=== PATIENT | male | born 1945 | race Caucasian/White ===

== ENCOUNTER → 2017-01-30 | Outpatient (REF) | payer MEDICARE | LOC: M SFHCPLAZ 09:53 | PROVIDERS: ATTEND Urology | DX: E03.9 Hypothyroidism, unspecified (principal); Z85.46 Personal history of malignant neoplasm of prostate ==

== ENCOUNTER → 2017-06-02 | Outpatient (CLI) | payer MEDICARE | LOC: M LAB 09:51 | PROVIDERS: ATTEND Internal Medicine Pulmonary Disease | DX: E03.9 Hypothyroidism, unspecified (principal) ==

== ENCOUNTER → 2017-07-17 | Outpatient (CLI) | payer MEDICARE | LOC: M LAB 10:07 | PROVIDERS: ATTEND Urology | DX: Z85.46 Personal history of malignant neoplasm of prostate (principal) ==

== ENCOUNTER → 2017-07-25 | Outpatient (REF) | payer MEDICARE | LOC: M SMT 17:16 | PROVIDERS: ATTEND Urology | DX: R39.9 Unspecified symptoms and signs involving the genitourinary system (principal) | CPT/HCPCS: 51798; 81001; 87086; G0463 ==

== ENCOUNTER → 2018-07-31 | Outpatient (REF) | payer MEDICARE ==
[2018-07-31 12:45] LABS: APPEARANCE, URINE CLEAR (CLEAR); BACTERIA, URINE AUTO NEGATIVE (NEGATIVE); BILIRUBIN, URINE AUTO NEGATIVE (NEGATIVE); BLOOD, URINE BLOOD NEGATIVE (NEGATIVE); COLOR, URINE YELLOW (YELLOW); GLUCOSE, URINE (UA) AUTO NEGATIVE (NEGATIVE); KETONE, URINE AUTO NEGATIVE (NEGATIVE); LEUKOCYTE ESTERASE, URINE AUTO NEGATIVE (NEGATIVE); MUCUS, URINE SMALL (NEGATIVE); NITRITE, URINE AUTO NEGATIVE (NEGATIVE); PROTEIN, URINE AUTO NEGATIVE (NEGATIVE); RBC, URINE AUTO 0 /HPF (0-3); SQUAMOUS EPITHELIAL CELL UR AU 0 /HPF (0-6); UROBILINOGEN, URINE AUTO 0.2 mg/dL (0.0-2.0); WBC, URINE AUTO 1 /HPF (0-3)
[2018-07-31 14:22] LABS: PROSTATIC SPECIFIC AG MONITOR < 0.01 NG/ML (< 4.0)
[2018-07-31 14:23] LABS: ALBUMIN 3.7 GM/DL (3.2-5.2); ALBUMIN/GLOBULIN RATIO 1.19 (1.00-1.93); ALKALINE PHOSPHATASE 70 U/L (45-117); ALT/SGPT 29 U/L (12-78); ANION GAP 9 MEQ/L (8-16); AST/SGOT 14 U/L (7-37); BILIRUBIN,TOTAL 0.7 MG/DL (0.2-1.0); BLOOD UREA NITROGEN 24 MG/DL (7-18); CALCIUM LEVEL 9.1 MG/DL (8.8-10.2); CARBON DIOXIDE LEVEL 25 MEQ/L (21-32); CHLORIDE LEVEL 108 MEQ/L (98-107); CREATININE FOR GFR 1.76 MG/DL (0.70-1.30); GLOMERULAR FILTRATION RATE 40.7 (>42); GLUCOSE, FASTING 88 MG/DL (70-100); POTASSIUM SERUM 4.2 MEQ/L (3.5-5.1); SODIUM LEVEL 142 MEQ/L (136-145); TOTAL PROTEIN 6.8 GM/DL (6.4-8.2)
== END ==
LOC: M SFHCPLAZ 09:43
DX: E03.9 Hypothyroidism, unspecified (principal); N18.3 Chronic kidney disease, stage 3 (moderate); Z12.5 Encounter for screening for malignant neoplasm of prostate
CPT/HCPCS: 84443

== ENCOUNTER → 2019-02-24 | Outpatient (CLI) | payer MEDICARE ==
[2019-02-24 10:51] LABS: CALCIUM LEVEL 8.9 MG/DL (8.8-10.2); CHOLESTEROL RISK RATIO 2.653 (<5); CREATININE FOR GFR 1.77 MG/DL (0.70-1.30); GLOMERULAR FILTRATION RATE 40.5 (>42); POTASSIUM SERUM 3.8 MEQ/L (3.5-5.1); THYROID STIMULATING HORMONE 2.69 uIU/ML (0.358-3.740)
== END ==
LOC: M LAB 09:35
PROVIDERS: ATTEND Obstetrics & Gynecology
DX: E03.9 Hypothyroidism, unspecified (principal)

== ENCOUNTER → 2019-02-27 | Outpatient (CLI) | payer MEDICARE ==
--- NOTE | 2019-02-27 13:39 | REP ---
ABDOMINAL AORTIC ULTRASOUND: HISTORY: Screening for abdominal aortic aneurysm. FINDINGS: Scanning through the retroperitoneum demonstrates a normal caliber aorta without yohana aneurysm. Atherosclerotic plaquing is seen. We were not able to identify the aorta at the level of the diaphragmatic hiatus due to bowel gas. At the main renal artery level, aortic dimensions are 1.9 x 1.5 cm, AP x transverse respectively. At mid aorta, there is mild ectasia with dimensions of 2.6 x 2.3 cm. The distal aorta measures 1.9 x 1.9 cm. The right and left common iliac arteries are normal measuring 0.9 and 0.8 cm in AP dimension respectively. IMPRESSION: Atherosclerotic changes. No aneurysm seen. Electronically Signed by Leonard Rosenthal MD 02/27/2019 06:49 P
== END ==
LOC: M RAD 08:00
PROVIDERS: ATTEND Obstetrics & Gynecology
DX: Z13.6 Encounter for screening for cardiovascular disorders (principal)

== ENCOUNTER → 2020-02-06 | Outpatient (CLI) | payer MEDICARE ==
[2020-02-06 11:23] LABS: BLOOD UREA NITROGEN 24 MG/DL (7-18); CARBON DIOXIDE LEVEL 27 MEQ/L (21-32); CHLORIDE LEVEL 109 MEQ/L (98-107); CHOLESTEROL LEVEL 139 MG/DL (<200); CHOLESTEROL RISK RATIO 2.957 (<5); CREATININE FOR GFR 1.79 MG/DL (0.70-1.30); GLOMERULAR FILTRATION RATE 39.8 (>42); GLUCOSE, FASTING 115 MG/DL (70-100); HDL CHOLESTEROL 47 MG/DL (>40); LDL CHOLESTEROL 65 MG/DL (<100); NON-HDL-C 92 MG/DL; POTASSIUM SERUM 4.2 MEQ/L (3.5-5.1); PROSTATIC SPECIFIC AG MONITOR < 0.01 NG/ML (< 4.00); SODIUM LEVEL 141 MEQ/L (136-145); TRIGLYCERIDES LEVEL 133 MG/DL (<150)
== END ==
LOC: M LAB 10:04
PROVIDERS: ATTEND Obstetrics & Gynecology
DX: I12.9 Hypertensive chronic kidney disease with stage 1 through stage 4 chronic kidney disease, or unspecified chronic kidney disease (principal); E03.9 Hypothyroidism, unspecified; E78.49 Other hyperlipidemia; N18.3 Chronic kidney disease, stage 3 (moderate); Z85.46 Personal history of malignant neoplasm of prostate

== ENCOUNTER → 2020-02-06 | Outpatient (CLI) | payer MEDICARE | LOC: M LAB 10:00 | PROVIDERS: ATTEND Nurse Practitioner Women's Health | DX: Z85.46 Personal history of malignant neoplasm of prostate (principal) ==

== ENCOUNTER 2020-04-07 18:24 | Emergency (ER) | payer MEDICARE ==
[~2020-04-07] VITALS: Ht 172.7 cm; Wt 80.4 kg
[2020-04-07] MEDS ORDERED: AMLO10TA5 PO (18:49)
[2020-04-07] MEDS ORDERED: LOSA50TA88 PO (18:49)
[2020-04-07] MEDS ORDERED: TAMS1CAP17 PO (18:49)
[2020-04-07] MEDS ORDERED: LEVO75TA4 PO (18:49)
[2020-04-07] MEDS ORDERED: ATOR80TA59 PO (18:49)
[2020-04-07 19:04] LABS: BASO % 0.3 % (0.0-1.0); EOS # 0.4 10^3/uL (0.0-0.5); EOS % 3.5 % (0.0-3.0); HEMATOCRIT 47.2 % (42.0-52.0); HEMOGLOBIN 15.4 g/dl (13.5-17.5); LYMPH # 1.6 10^3/uL (1.5-5.0); MEAN CORPUSCULAR HEMOGLOBIN 27.6 pg (27.0-33.0); MEAN CORPUSCULAR HGB CONC 32.6 g/dl (32.0-36.5); MEAN CORPUSCULAR VOLUME 84.7 fl (80.0-96.0); MONO # 0.8 10^3/uL (0.0-0.8); MONO % 7.2 % (0.0-5.0); NEUTROPHILS # 7.8 10^3/uL (1.5-8.5); NEUTROPHILS % 73.6 % (36.0-66.0); PLATELET COUNT, AUTOMATED 182 10^3/uL (150-450); RED BLOOD COUNT 5.57 10^6/uL (4.30-6.10); WHITE BLOOD COUNT 10.6 10^3/uL (4.0-10.0)
[2020-04-07] MEDS ORDERED: NS 500 ML IV ONE (19:15)
--- NOTE | 2020-04-07 19:32 | REPVR ---
PROCEDURE INFORMATION: Exam: CT Head Without Contrast Exam date and time: 04/07/2020 7:02 PM Age: 74 years old Clinical indication: Altered mental status/memory loss; Additional info: AMS TECHNIQUE: Imaging protocol: Computed tomography of the head without contrast. Radiation optimization: All CT scans at this facility use at least one of these dose optimization techniques: automated exposure control; mA and/or kV adjustment per patient size (includes targeted exams where dose is matched to clinical indication); or iterative reconstruction. COMPARISON: No relevant prior studies available. FINDINGS: Brain: Foci of hyperdensity are identified within the right basal ganglia, the largest measuring 0.7 x 0.4 cm. This is concerning for hemorrhage or calcification. The white-nolasco differentiation is otherwise preserved demonstrating no acute territorial type infarct. There are scattered foci of white matter hypodensity, likely representing small vessel ischemic disease in a patient this age. The acuity of the white matter disease is indeterminate. There is no midline shift. Ventricles: There is mild prominence of the ventricles and sulci, compatible with atrophy. Bones/joints: The calvarium demonstrates no evidence for a depressed fracture. Sinuses: Visualized sinuses are unremarkable. No fluid levels. Mastoid air cells: No mastoid effusion. Soft tissues: Unremarkable. Vasculature: Hyperdensity is identified in the region of the straight sinus, left transverse venous sinus, and internal cerebral veins. Thrombosis is the diagnosis of exclusion. Intracranial atherosclerosis visualized. IMPRESSION: 1. Foci of hyperdensity are identified within the right basal ganglia, the largest measuring 0.7 x 0.4 cm. This is concerning for hemorrhage or calcification. A follow-up head CT in 12-24 hours is recommended. 2. Hyperdensity is identified in the region of the straight sinus, left transverse venous sinus, and internal cerebral veins. Thrombosis is the diagnosis of exclusion. Correlation with MRI with/without contrast and MRV recommended, as clinically indicated. 3. There are scattered foci of white matter hypodensity, likely representing small vessel ischemic disease in a patient this age. 4. Mild atrophy. Electronically signed by: Julio Santizo On 04/07/2020 19:31:51 PM
[2020-04-07 19:37] LABS: OSMOLALITY SERUM 298 MOSM/KG (280-301)
[2020-04-07] MEDS ORDERED: niCARdipine IV 40 MG in IV 1 EA IV SCH (19:45)
[2020-04-07 19:52] LABS: ACETAMINOPHEN LEVEL < 2.0 UG/ML (10.0-30.0); ALBUMIN 3.7 GM/DL (3.2-5.2); ALT/SGPT 28 U/L (12-78); BILIRUBIN,DIRECT 0.2 MG/DL (0.0-0.2); BILIRUBIN,TOTAL 0.5 MG/DL (0.2-1.0); BLOOD UREA NITROGEN 20 MG/DL (7-18); CALCIUM LEVEL 8.8 MG/DL (8.8-10.2); CARBON DIOXIDE LEVEL 25 MEQ/L (21-32); CHLORIDE LEVEL 111 MEQ/L (98-107); CK-MB VALUE MASS < 1.0 NG/ML (<3.6); CPK CREATINE PHOSPHOKINASE 87 U/L (39-308); CREATININE FOR GFR 1.63 MG/DL (0.70-1.30); ETHYL ALCOHOL (ETHANOL) < 0.003 % (0.000-0.010); GLOMERULAR FILTRATION RATE 44.4 (>42); GLUCOSE, FASTING 97 MG/DL (70-100); MB/CK RELATIVE INDEX 1.15 (< OR =4); POTASSIUM SERUM 4.2 MEQ/L (3.5-5.1); SALICYLATE LEVEL < 1.7 MG/DL (5.0-30.0); SODIUM LEVEL 143 MEQ/L (136-145); TOTAL PROTEIN 7.1 GM/DL (6.4-8.2); TROPONIN I < 0.02 NG/ML (< 0.10)
[2020-04-07 20:44] LABS: AMPHETAMINES LEVEL URINE NEGATIVE (NEGATIVE); BARBITURATES URINE NEGATIVE (NEGATIVE); BENZODIAZEPINES URINE NEGATIVE (NEGATIVE); CANNABINOIDS URINE NEGATIVE (NEGATIVE); COCAINE METABOLITE URINE NEGATIVE (NEGATIVE); METHADONE URINE NEGATIVE (NEGATIVE); OPIATES URINE NEGATIVE (NEGATIVE); PHENCYCLIDINE URINE NEGATIVE (NEGATIVE)
[2020-04-07 21:05] VITALS: BP 140/65
--- NOTE | 2020-04-07 21:18 | ECGEPIP ---
[facility] - ED Test Date: 2020-04-07 Pat Name: IONA LOO Department: Room: - Gender: Male [employer]: : [id number] Requested By: Blair Churchill Order Number: [id number] Reading MD: Tereza Peterson Measurements Intervals [place] Rate: 67 P: 23 DC: 152 QRS: 5 QRSD: 88 T: 32 QT: 371 QTc: 394 Interpretive Statements SINUS RHYTHM MODERATE ST DEPRESSION NO PRIOR Electronically Signed on 04-07-2020 21:18:12 EDT by Tereza Peterson
--- NOTE | 2020-04-08 08:09 | REP ---
Portable chest x-ray: Single view. History: Altered mental status. Preliminary report is provided at the time of the exam by Dr. Trejo. Comparison study: October 24, 2011. Findings: Monitoring electrodes are seen. Mild cardiac enlargement is observed. This is a new finding. The aorta somewhat tortuous. Pulmonary vasculature is cephalized. No pleural effusion or pulmonary edema seen. No focal infiltrate is noted. Impression: Mild cardiomegaly. Otherwise no acute disease. Electronically Signed by Leonard Rosenthal MD 04/08/2020 08:00 A
== END 2020-04-07 21:15 | disposition short-term general hospital (02) ==
LOC: M ED 18:24
DX: I62.9 Nontraumatic intracranial hemorrhage, unspecified (principal); I16.0 Hypertensive urgency; E03.9 Hypothyroidism, unspecified; E78.5 Hyperlipidemia, unspecified; N18.3 Chronic kidney disease, stage 3 (moderate); Z85.46 Personal history of malignant neoplasm of prostate; Z87.891 Personal history of nicotine dependence; Z79.899 Other long term (current) drug therapy
CPT/HCPCS: 36415; 70450; 71045; 80048; 80076; 80307; 82140; 82550; 82553; 83605; 83930; 84443; 84484; 85025; 87040; 93005; 93041; 94760; 96374; 99285; G0480; U0002

== ENCOUNTER → 2020-05-28 | Outpatient (REF) | payer MEDICARE ==
[~2020-05-28] MED LIST: AMLO1TAB25 PO; ATOR80TA59 PO; LEVO75TA4 PO; LOSA50TA88 PO; TAMS1CAP17 PO
[2020-05-28 11:43] LABS: INR 2.62; PROTHROMBIN TIME 27.9 SECONDS (11.8-14.0)
== END ==
LOC: M SHH 11:06
PROVIDERS: ATTEND Student in an Organized Health Care Education/Training Program
DX: Z51.81 Encounter for therapeutic drug level monitoring (principal); Z79.01 Long term (current) use of anticoagulants

== ENCOUNTER → 2020-05-31 | Outpatient (REF) | payer MEDICARE ==
[2020-05-31 15:00] LABS: INR 1.76; PROTHROMBIN TIME 20.3 SECONDS (11.8-14.0)
== END ==
LOC: M SHH 14:14
PROVIDERS: ATTEND Student in an Organized Health Care Education/Training Program
DX: Z79.01 Long term (current) use of anticoagulants (principal)

== ENCOUNTER → 2020-06-03 | Outpatient (REF) | payer MEDICARE ==
[2020-06-03 14:10] LABS: INR 1.74; PROTHROMBIN TIME 20.1 SECONDS (11.8-14.0)
== END ==
LOC: M SHH 13:34
PROVIDERS: ATTEND Student in an Organized Health Care Education/Training Program
DX: Z79.01 Long term (current) use of anticoagulants (principal)

== ENCOUNTER → 2020-06-07 | Outpatient (REF) | payer MEDICARE ==
[2020-06-07 12:43] LABS: INR 1.69; PROTHROMBIN TIME 19.6 SECONDS (11.8-14.0)
== END ==
LOC: M SHH 11:32
PROVIDERS: ATTEND Student in an Organized Health Care Education/Training Program
DX: Z79.01 Long term (current) use of anticoagulants (principal)

== ENCOUNTER → 2020-06-10 | Outpatient (REF) | payer MEDICARE ==
[2020-06-10 11:29] LABS: INR 1.71; PROTHROMBIN TIME 19.8 SECONDS (11.8-14.0)
== END ==
LOC: M SHH 11:04
PROVIDERS: ATTEND Student in an Organized Health Care Education/Training Program
DX: Z79.01 Long term (current) use of anticoagulants (principal)

== ENCOUNTER → 2020-06-14 | Outpatient (REF) | payer MEDICARE ==
[2020-07-18 22:49] LABS: HEMATOCRIT 33.3 % (42.0-52.0); HEMOGLOBIN 10.3 g/dl (13.5-17.5); MEAN CORPUSCULAR VOLUME 82.2 fl (80.0-96.0); RED BLOOD COUNT 4.05 10^6/uL (4.30-6.10); WHITE BLOOD COUNT 8.1 10^3/uL (4.0-10.0)
[2020-07-18 22:50] LABS: MEAN CORPUSCULAR HEMOGLOBIN 25.4 pg (27.0-33.0); MEAN CORPUSCULAR HGB CONC 30.9 g/dl (32.0-36.5); PLATELET COUNT, AUTOMATED 335 10^3/uL (150-450)
[2020-07-18 22:51] LABS: INR 1.62; PROTHROMBIN TIME 19.6 SECONDS (11.8-14.0)
[2020-08-20 14:59] LABS: GLUCOSE, FASTING SEE SEPARATE REPORT MG/DL
== END ==
LOC: M SHH 07:46
PROVIDERS: ATTEND Student in an Organized Health Care Education/Training Program
DX: Z79.01 Long term (current) use of anticoagulants (principal)

== ENCOUNTER → 2020-06-21 | Outpatient (REF) | payer MEDICARE ==
[2020-07-18 22:48] LABS: INR 2.58; PROTHROMBIN TIME 28.3 SECONDS (11.8-14.0)
== END ==
LOC: M LAB REF 12:39
PROVIDERS: ATTEND Student in an Organized Health Care Education/Training Program
DX: Z79.01 Long term (current) use of anticoagulants (principal)

== ENCOUNTER → 2020-06-24 | Outpatient (REF) | payer MEDICARE ==
[2020-07-22 12:43] LABS: INR 3.1; PROTHROMBIN TIME 32.6 SECONDS (11.8-14.0)
== END ==
LOC: M SHH 17:11
PROVIDERS: ATTEND Student in an Organized Health Care Education/Training Program
DX: Z51.81 Encounter for therapeutic drug level monitoring (principal); Z79.01 Long term (current) use of anticoagulants

== ENCOUNTER → 2020-06-28 | Outpatient (REF) | payer MEDICARE ==
[2020-07-28 13:23] LABS: INR 3.48; PROTHROMBIN TIME 35.8 SECONDS (11.8-14.0)
== END ==
LOC: M SFHCPLAZ 12:30
PROVIDERS: ATTEND Student in an Organized Health Care Education/Training Program
DX: Z79.01 Long term (current) use of anticoagulants (principal)

== ENCOUNTER → 2020-07-01 | Outpatient (REF) | payer MEDICARE ==
[2020-08-04 10:52] LABS: INR 3.36; PROTHROMBIN TIME 34.8 SECONDS (11.8-14.0)
== END ==
LOC: M SFHCPLAZ 11:48
PROVIDERS: ATTEND Student in an Organized Health Care Education/Training Program
DX: Z79.01 Long term (current) use of anticoagulants (principal)

== ENCOUNTER → 2020-07-05 | Outpatient (REF) | payer MEDICARE ==
[2020-08-21 16:33] LABS: INR 2.85; PROTHROMBIN TIME 30.6 SECONDS (12.5-14.3)
== END ==
LOC: M SFHCPLAZ 11:48
PROVIDERS: ATTEND Student in an Organized Health Care Education/Training Program
DX: Z79.01 Long term (current) use of anticoagulants (principal)

== ENCOUNTER → 2020-07-08 | Outpatient (CLI) | payer MEDICARE ==
[2020-07-08 12:20] LABS: INR 2.83; PROTHROMBIN TIME 30.4 SECONDS (11.8-14.0)
== END ==
LOC: M PLALAB 10:44
PROVIDERS: ATTEND Student in an Organized Health Care Education/Training Program
DX: Z79.01 Long term (current) use of anticoagulants (principal)

== ENCOUNTER → 2020-07-15 | Outpatient (CLI) | payer MEDICARE ==
[2020-07-15 13:41] LABS: INR 2.15; PROTHROMBIN TIME 24.5 SECONDS (11.8-14.0)
== END ==
LOC: M PLALAB 10:03
PROVIDERS: ATTEND Student in an Organized Health Care Education/Training Program
DX: Z51.81 Encounter for therapeutic drug level monitoring (principal); Z79.01 Long term (current) use of anticoagulants

== ENCOUNTER → 2020-07-19 | Outpatient (RCR) | payer MEDICARE | END | disposition home or self-care (01) | LOC: M PT 07-07 10:14 → M ST 07-12 10:55 → M PT 07-13 13:34 → M ST 07-15 13:30 → M PT 09:55 → M ST 10:56 | PROVIDERS: ATTEND Student in an Organized Health Care Education/Training Program | DX: G93.9 Disorder of brain, unspecified (principal) ==

== ENCOUNTER → 2020-07-19 | Outpatient (CLI) | payer MEDICARE ==
[2020-07-19 16:16] LABS: INR 2.89; PROTHROMBIN TIME 30.9 SECONDS (11.8-14.0)
== END ==
LOC: M PLALAB 12:49
PROVIDERS: ATTEND Student in an Organized Health Care Education/Training Program
DX: Z79.01 Long term (current) use of anticoagulants (principal)

== ENCOUNTER → 2020-07-22 | Outpatient (CLI) | payer MEDICARE ==
[2020-07-22 13:08] LABS: INR 2.92; PROTHROMBIN TIME 31.1 SECONDS (11.8-14.0)
== END ==
LOC: M PLALAB 09:48
PROVIDERS: ATTEND Student in an Organized Health Care Education/Training Program
DX: Z51.81 Encounter for therapeutic drug level monitoring (principal)

== ENCOUNTER → 2020-07-27 | Outpatient (REF) | payer MEDICARE ==
[2020-07-27 14:28] LABS: INR 2.82; PROTHROMBIN TIME 30.3 SECONDS (11.8-14.0)
== END ==
LOC: M PLALAB 13:08
PROVIDERS: ATTEND Student in an Organized Health Care Education/Training Program
DX: Z79.01 Long term (current) use of anticoagulants (principal)

== ENCOUNTER 2020-08-05 11:30 | Outpatient (RCR) | payer MEDICARE | END 2020-08-18 | disposition home or self-care (01) | LOC: M ST 11:30 | PROVIDERS: ATTEND Student in an Organized Health Care Education/Training Program | DX: I69.815 Cognitive social or emotional deficit following other cerebrovascular disease (principal) ==

== ENCOUNTER → 2020-08-05 | Outpatient (CLI) | payer MEDICARE ==
[2020-08-05 14:18] LABS: INR 3.02
== END ==
LOC: M PLALAB 10:08
PROVIDERS: ATTEND Student in an Organized Health Care Education/Training Program
DX: Z79.01 Long term (current) use of anticoagulants (principal)

== ENCOUNTER → 2020-08-12 | Outpatient (CLI) | payer MEDICARE ==
[2020-08-12 13:35] LABS: INR 2.81; PROTHROMBIN TIME 30.2 SECONDS (12.5-14.3)
== END ==
LOC: M PLALAB 10:07
PROVIDERS: ATTEND Student in an Organized Health Care Education/Training Program
DX: Z51.81 Encounter for therapeutic drug level monitoring (principal); Z79.01 Long term (current) use of anticoagulants

== ENCOUNTER → 2020-08-19 | Outpatient (CLI) | payer MEDICARE ==
[2020-08-19 14:15] LABS: INR 2.65; PROTHROMBIN TIME 28.9 SECONDS (12.5-14.3)
== END ==
LOC: M PLALAB 09:22
PROVIDERS: ATTEND Student in an Organized Health Care Education/Training Program
DX: Z51.81 Encounter for therapeutic drug level monitoring (principal)

== ENCOUNTER → 2020-08-26 | Outpatient (CLI) | payer MEDICARE ==
[2020-08-26 15:53] LABS: INR 2.6; PROTHROMBIN TIME 28.4 SECONDS (12.5-14.3)
== END ==
LOC: M PLALAB 14:00
PROVIDERS: ATTEND Student in an Organized Health Care Education/Training Program
DX: Z79.01 Long term (current) use of anticoagulants (principal)

== ENCOUNTER 2020-09-01 10:43 | Outpatient (RCR) | payer MEDICARE | END 2020-09-18 | LOC: M PT 10:43 | PROVIDERS: ATTEND Student in an Organized Health Care Education/Training Program | DX: I69.815 Cognitive social or emotional deficit following other cerebrovascular disease (principal) ==

== ENCOUNTER → 2020-09-02 | Outpatient (CLI) | payer MEDICARE ==
[2020-09-02 14:12] LABS: INR 2.92; PROTHROMBIN TIME 31.2 SECONDS (12.5-14.3)
== END ==
LOC: M PLALAB 10:10
PROVIDERS: ATTEND Student in an Organized Health Care Education/Training Program
DX: Z79.01 Long term (current) use of anticoagulants (principal)

== ENCOUNTER → 2020-09-09 | Outpatient (CLI) | payer MEDICARE ==
[2020-09-09 14:18] LABS: INR 3.01; PROTHROMBIN TIME 31.9 SECONDS (12.5-14.3)
== END ==
LOC: M PLALAB 11:35
PROVIDERS: ATTEND Student in an Organized Health Care Education/Training Program
DX: Z79.01 Long term (current) use of anticoagulants (principal)

== ENCOUNTER → 2020-09-23 | Outpatient (CLI) | payer MEDICARE ==
[2020-09-23 14:26] LABS: INR 3.26
== END ==
LOC: M PLALAB 10:32
PROVIDERS: ATTEND Student in an Organized Health Care Education/Training Program
DX: Z79.01 Long term (current) use of anticoagulants (principal)

== ENCOUNTER → 2020-10-21 | Outpatient (CLI) | payer MEDICARE ==
[2020-10-21 15:15] LABS: INR 3.71; PROTHROMBIN TIME 37.6 SECONDS (12.5-14.3)
== END ==
LOC: M PLALAB 11:49
PROVIDERS: ATTEND Student in an Organized Health Care Education/Training Program
DX: Z51.81 Encounter for therapeutic drug level monitoring (principal); Z79.01 Long term (current) use of anticoagulants

== ENCOUNTER → 2020-10-25 | Outpatient (CLI) | payer MEDICARE ==
[2020-10-25 16:08] LABS: INR 2.74; PROTHROMBIN TIME 29.6 SECONDS (12.5-14.3)
[2020-10-25 16:12] LABS: GLOMERULAR FILTRATION RATE 34.9 (>42)
== END ==
LOC: M PLALAB 11:36
PROVIDERS: ATTEND Psychiatry & Neurology Neurology
DX: Z51.81 Encounter for therapeutic drug level monitoring (principal); I63.6 Cerebral infarction due to cerebral venous thrombosis, nonpyogenic; I26.99 Other pulmonary embolism without acute cor pulmonale; I82.421 Acute embolism and thrombosis of right iliac vein

== ENCOUNTER → 2020-11-18 | Outpatient (CLI) | payer MEDICARE ==
[2020-11-18 13:24] LABS: INR 3.8; PROTHROMBIN TIME 38.3 SECONDS (12.5-14.3)
== END ==
LOC: M PLALAB 10:50
PROVIDERS: ATTEND Student in an Organized Health Care Education/Training Program
DX: Z51.81 Encounter for therapeutic drug level monitoring (principal)

== ENCOUNTER → 2020-11-25 | Outpatient (CLI) | payer MEDICARE ==
[2020-11-25 14:34] LABS: INR 3.14
== END ==
LOC: M PLALAB 11:09
PROVIDERS: ATTEND Student in an Organized Health Care Education/Training Program
DX: Z51.81 Encounter for therapeutic drug level monitoring (principal); Z79.899 Other long term (current) drug therapy

== ENCOUNTER → 2020-12-09 | Outpatient (REF) | payer MEDICARE ==
[2020-12-09 14:53] LABS: INR 3.18; PROTHROMBIN TIME 33.3 SECONDS (12.5-14.3)
== END ==
LOC: M PLALAB 10:44
PROVIDERS: ATTEND Student in an Organized Health Care Education/Training Program
DX: Z51.81 Encounter for therapeutic drug level monitoring (principal)

== ENCOUNTER → 2021-01-13 | Outpatient (REF) | payer MEDICARE ==
[2021-01-13 13:46] LABS: INR 4.01
== END ==
LOC: M PLALAB 10:38
PROVIDERS: ATTEND Student in an Organized Health Care Education/Training Program
DX: Z51.81 Encounter for therapeutic drug level monitoring (principal)

== ENCOUNTER → 2021-01-20 | Outpatient (REF) | payer MEDICARE ==
[2021-01-20 13:51] LABS: INR 3.32; PROTHROMBIN TIME 34.5 SECONDS (12.5-14.3)
== END ==
LOC: M PLALAB 10:19
PROVIDERS: ATTEND Student in an Organized Health Care Education/Training Program
DX: Z51.81 Encounter for therapeutic drug level monitoring (principal)

== ENCOUNTER → 2021-01-27 | Outpatient (REF) | payer MEDICARE ==
[2021-01-27 13:08] LABS: INR 3.47; PROTHROMBIN TIME 35.7 SECONDS (12.5-14.3)
== END ==
LOC: M PLALAB 10:49
PROVIDERS: ATTEND Student in an Organized Health Care Education/Training Program
DX: Z51.81 Encounter for therapeutic drug level monitoring (principal)

== ENCOUNTER → 2021-02-03 | Outpatient (REF) | payer MEDICARE ==
[2021-02-03 13:54] LABS: INR 3.64; PROTHROMBIN TIME 37.1 SECONDS (12.5-14.3)
== END ==
LOC: M PLALAB 11:10
PROVIDERS: ATTEND Student in an Organized Health Care Education/Training Program
DX: Z51.81 Encounter for therapeutic drug level monitoring (principal); Z79.01 Long term (current) use of anticoagulants

== ENCOUNTER → 2021-02-10 | Outpatient (REF) | payer MEDICARE ==
[2021-02-10 12:16] LABS: INR 2.95; PROTHROMBIN TIME 31.4 SECONDS (12.5-14.3)
== END ==
LOC: M PLALAB 11:04
PROVIDERS: ATTEND Student in an Organized Health Care Education/Training Program
DX: Z51.81 Encounter for therapeutic drug level monitoring (principal)

== ENCOUNTER → 2021-02-17 | Outpatient (REF) | payer MEDICARE ==
[2021-02-17 14:19] LABS: INR 3.65; PROTHROMBIN TIME 37.1 SECONDS (12.5-14.3)
== END ==
LOC: M PLALAB 11:30
PROVIDERS: ATTEND Student in an Organized Health Care Education/Training Program
DX: Z51.81 Encounter for therapeutic drug level monitoring (principal); Z79.01 Long term (current) use of anticoagulants

== ENCOUNTER → 2021-02-24 | Outpatient (REF) | payer MEDICARE ==
[2021-02-24 14:07] LABS: INR 2.95; PROTHROMBIN TIME 31.4 SECONDS (12.5-14.3)
== END ==
LOC: M PLALAB 11:11
PROVIDERS: ATTEND Student in an Organized Health Care Education/Training Program
DX: Z51.81 Encounter for therapeutic drug level monitoring (principal)

== ENCOUNTER → 2021-03-03 | Outpatient (REF) | payer MEDICARE ==
[2021-03-03 14:08] LABS: INR 3.53; PROTHROMBIN TIME 36.2 SECONDS (12.5-14.3)
== END ==
LOC: M PLALAB 11:11
PROVIDERS: ATTEND Student in an Organized Health Care Education/Training Program
DX: Z51.81 Encounter for therapeutic drug level monitoring (principal); Z79.01 Long term (current) use of anticoagulants

== ENCOUNTER → 2021-03-10 | Outpatient (REF) | payer MEDICARE ==
[2021-03-10 14:00] LABS: INR 3.13; PROTHROMBIN TIME 32.9 SECONDS (12.5-14.3)
== END ==
LOC: M SFHCPLAZ 13:28
PROVIDERS: ATTEND Student in an Organized Health Care Education/Training Program
DX: Z79.01 Long term (current) use of anticoagulants (principal)

== ENCOUNTER → 2021-03-24 | Outpatient (CLI) | payer MEDICARE ==
[2021-03-24 13:02] LABS: INR 3.2; PROTHROMBIN TIME 33.5 SECONDS (12.5-14.3)
== END ==
LOC: M PLALAB 10:50
PROVIDERS: ATTEND Student in an Organized Health Care Education/Training Program
DX: Z51.81 Encounter for therapeutic drug level monitoring (principal)

== ENCOUNTER → 2021-04-01 | Outpatient (REF) | payer MEDICARE ==
[2021-04-01 11:26] LABS: INR 4.14
== END ==
LOC: M PLALAB 09:49
PROVIDERS: ATTEND Student in an Organized Health Care Education/Training Program
DX: Z79.01 Long term (current) use of anticoagulants (principal)

== ENCOUNTER → 2021-04-04 | Outpatient (REF) | payer MEDICARE ==
[2021-04-04 13:40] LABS: INR 3.73; PROTHROMBIN TIME 37.8 SECONDS (12.5-14.3)
== END ==
LOC: M PLALAB 09:40
PROVIDERS: ATTEND Student in an Organized Health Care Education/Training Program
DX: Z51.81 Encounter for therapeutic drug level monitoring (principal); Z79.01 Long term (current) use of anticoagulants

== ENCOUNTER → 2021-04-07 | Outpatient (REF) | payer MEDICARE ==
[2021-04-07 15:55] LABS: INR 2.83; PROTHROMBIN TIME 30.4 SECONDS (12.5-14.3)
== END ==
LOC: M SFHCPLAZ 14:48
PROVIDERS: ATTEND Student in an Organized Health Care Education/Training Program
DX: R79.1 Abnormal coagulation profile (principal)

== ENCOUNTER → 2021-04-14 | Outpatient (CLI) | payer MEDICARE ==
[2021-04-14 13:51] LABS: INR 2.82; PROTHROMBIN TIME 30.3 SECONDS (12.5-14.3)
== END ==
LOC: M PLALAB 09:36
PROVIDERS: ATTEND Student in an Organized Health Care Education/Training Program
DX: R79.1 Abnormal coagulation profile (principal)

== ENCOUNTER → 2021-04-21 | Outpatient (REF) | payer MEDICARE ==
[2021-04-21 13:30] LABS: INR 3.56; PROTHROMBIN TIME 36.4 SECONDS (12.5-14.3)
== END ==
LOC: M PLALAB 10:51
PROVIDERS: ATTEND Student in an Organized Health Care Education/Training Program
DX: Z51.81 Encounter for therapeutic drug level monitoring (principal)

== ENCOUNTER → 2021-04-28 | Outpatient (REF) | payer MEDICARE ==
[2021-04-28 14:27] LABS: INR 2.69; PROTHROMBIN TIME 29.2 SECONDS (12.5-14.3)
== END ==
LOC: M PLALAB 12:58
PROVIDERS: ATTEND Student in an Organized Health Care Education/Training Program
DX: Z51.81 Encounter for therapeutic drug level monitoring (principal); Z79.01 Long term (current) use of anticoagulants

== ENCOUNTER → 2021-05-05 | Outpatient (REF) | payer MEDICARE ==
[2021-05-05 14:01] LABS: INR 3.4; PROTHROMBIN TIME 35.1 SECONDS (12.5-14.3)
== END ==
LOC: M PLALAB 12:52
PROVIDERS: ATTEND Student in an Organized Health Care Education/Training Program
DX: Z51.81 Encounter for therapeutic drug level monitoring (principal); Z79.899 Other long term (current) drug therapy

== ENCOUNTER → 2021-05-12 | Outpatient (REF) | payer MEDICARE ==
[2021-05-12 14:01] LABS: INR 2.22; PROTHROMBIN TIME 25.1 SECONDS (12.5-14.3)
== END ==
LOC: M PLALAB 12:49
PROVIDERS: ATTEND Student in an Organized Health Care Education/Training Program
DX: Z51.81 Encounter for therapeutic drug level monitoring (principal); Z79.899 Other long term (current) drug therapy

== ENCOUNTER → 2021-05-19 | Outpatient (CLI) | payer MEDICARE ==
[2021-05-19 13:47] LABS: INR 3.19; PROTHROMBIN TIME 33.4 SECONDS (12.5-14.3)
== END ==
LOC: M PLALAB 11:07
PROVIDERS: ATTEND Student in an Organized Health Care Education/Training Program
DX: Z51.81 Encounter for therapeutic drug level monitoring (principal)

== ENCOUNTER → 2021-05-26 | Outpatient (CLI) | payer MEDICARE ==
[2021-05-26 13:47] LABS: INR 3.3; PROTHROMBIN TIME 34.3 SECONDS (12.5-14.3)
== END ==
LOC: M PLALAB 09:36
PROVIDERS: ATTEND Student in an Organized Health Care Education/Training Program
DX: Z51.81 Encounter for therapeutic drug level monitoring (principal); Z79.899 Other long term (current) drug therapy

== ENCOUNTER → 2021-06-02 | Outpatient (CLI) | payer MEDICARE ==
[2021-06-02 14:05] LABS: INR 3.51
== END ==
LOC: M PLALAB 10:28
PROVIDERS: ATTEND Student in an Organized Health Care Education/Training Program
DX: Z51.81 Encounter for therapeutic drug level monitoring (principal)

== ENCOUNTER → 2021-06-09 | Outpatient (CLI) | payer MEDICARE ==
[2021-06-09 13:40] LABS: INR 2.98; PROTHROMBIN TIME 31.7 SECONDS (12.5-14.3)
== END ==
LOC: M PLALAB 10:05
PROVIDERS: ATTEND Student in an Organized Health Care Education/Training Program
DX: Z51.81 Encounter for therapeutic drug level monitoring (principal)

== ENCOUNTER → 2021-06-16 | Outpatient (CLI) | payer MEDICARE ==
[2021-06-16 13:27] LABS: INR 3.29; PROTHROMBIN TIME 34.2 SECONDS (12.5-14.3)
== END ==
LOC: M PLALAB 10:37
PROVIDERS: ATTEND Student in an Organized Health Care Education/Training Program
DX: Z51.81 Encounter for therapeutic drug level monitoring (principal); Z79.01 Long term (current) use of anticoagulants

== ENCOUNTER → 2021-06-23 | Outpatient (CLI) | payer MEDICARE ==
[2021-06-23 13:20] LABS: INR 3.48; PROTHROMBIN TIME 35.2 SECONDS (12.7-14.5)
== END ==
LOC: M PLALAB 10:20
PROVIDERS: ATTEND Student in an Organized Health Care Education/Training Program
DX: Z51.81 Encounter for therapeutic drug level monitoring (principal)

== ENCOUNTER → 2021-06-30 | Outpatient (CLI) | payer MEDICARE ==
[2021-06-30 13:47] LABS: INR 3.65; PROTHROMBIN TIME 36.5 SECONDS (12.7-14.5)
== END ==
LOC: M PLALAB 10:43
PROVIDERS: ATTEND Student in an Organized Health Care Education/Training Program
DX: Z51.81 Encounter for therapeutic drug level monitoring (principal)

== ENCOUNTER → 2021-07-07 | Outpatient (CLI) | payer MEDICARE ==
[2021-07-07 13:46] LABS: INR 2.88; PROTHROMBIN TIME 30.5 SECONDS (12.7-14.5)
== END ==
LOC: M PLALAB 10:52
PROVIDERS: ATTEND Student in an Organized Health Care Education/Training Program
DX: Z51.81 Encounter for therapeutic drug level monitoring (principal)

== ENCOUNTER → 2021-07-14 | Outpatient (CLI) | payer MEDICARE ==
[2021-07-14 13:25] LABS: INR 2.87; PROTHROMBIN TIME 30.4 SECONDS (12.7-14.5)
== END ==
LOC: M PLALAB 10:08
PROVIDERS: ATTEND Student in an Organized Health Care Education/Training Program
DX: Z51.81 Encounter for therapeutic drug level monitoring (principal)

== ENCOUNTER → 2021-07-21 | Outpatient (CLI) | payer MEDICARE ==
[2021-07-21 13:47] LABS: INR 3.03; PROTHROMBIN TIME 31.7 SECONDS (12.7-14.5)
== END ==
LOC: M PLALAB 10:03
PROVIDERS: ATTEND Student in an Organized Health Care Education/Training Program
DX: Z51.81 Encounter for therapeutic drug level monitoring (principal); Z79.899 Other long term (current) drug therapy

== ENCOUNTER → 2021-07-28 | Outpatient (CLI) | payer MEDICARE ==
[2021-07-28 13:25] LABS: INR 3.3; PROTHROMBIN TIME 33.9 SECONDS (12.7-14.5)
== END ==
LOC: M PLALAB 10:19
PROVIDERS: ATTEND Student in an Organized Health Care Education/Training Program
DX: Z51.81 Encounter for therapeutic drug level monitoring (principal)

== ENCOUNTER → 2021-08-04 | Outpatient (CLI) | payer MEDICARE ==
[2021-08-04 13:52] LABS: INR 3.2
== END ==
LOC: M PLALAB 10:28
PROVIDERS: ATTEND Student in an Organized Health Care Education/Training Program
DX: Z51.81 Encounter for therapeutic drug level monitoring (principal); Z79.899 Other long term (current) drug therapy

== ENCOUNTER → 2021-08-11 | Outpatient (CLI) | payer MEDICARE ==
[2021-08-11 13:10] LABS: INR 3.01; PROTHROMBIN TIME 31.5 SECONDS (12.7-14.5)
== END ==
LOC: M PLALAB 10:51
PROVIDERS: ATTEND Student in an Organized Health Care Education/Training Program
DX: Z51.81 Encounter for therapeutic drug level monitoring (principal)

== ENCOUNTER → 2021-08-25 | Outpatient (CLI) | payer MEDICARE ==
[2021-08-25 13:50] LABS: INR 3.26; PROTHROMBIN TIME 33.5 SECONDS (12.7-14.5)
== END ==
LOC: M PLALAB 11:08
PROVIDERS: ATTEND Student in an Organized Health Care Education/Training Program
DX: Z51.81 Encounter for therapeutic drug level monitoring (principal)

== ENCOUNTER → 2021-09-05 | Outpatient (REF) | payer MEDICARE | LOC: M SFHCPLAZ 15:13 | PROVIDERS: ATTEND Family Medicine | DX: E78.5 Hyperlipidemia, unspecified (principal); E03.9 Hypothyroidism, unspecified; F32.A Depression, unspecified ==

== ENCOUNTER → 2021-09-06 | Outpatient (CLI) | payer MEDICARE ==
[2021-09-06 11:46] LABS: CHOLESTEROL RISK RATIO 3.148 (<5); THYROID STIMULATING HORMONE 2.23 uIU/ML (0.358-3.740)
== END ==
LOC: M PLALAB 09:21
PROVIDERS: ATTEND Student in an Organized Health Care Education/Training Program
DX: E78.5 Hyperlipidemia, unspecified (principal); E03.9 Hypothyroidism, unspecified; F32.A Depression, unspecified; Z79.899 Other long term (current) drug therapy

== ENCOUNTER → 2021-09-22 | Outpatient (CLI) | payer MEDICARE ==
[2021-09-22 13:49] LABS: INR 3.03; PROTHROMBIN TIME 31.7 SECONDS (12.7-14.5)
== END ==
LOC: M PLALAB 09:55
PROVIDERS: ATTEND Student in an Organized Health Care Education/Training Program
DX: Z51.81 Encounter for therapeutic drug level monitoring (principal)

== ENCOUNTER → 2021-10-20 | Outpatient (CLI) | payer MEDICARE ==
[2021-10-20 13:23] LABS: INR 3.52; PROTHROMBIN TIME 35.5 SECONDS (12.7-14.5)
== END ==
LOC: M PLALAB 09:56
PROVIDERS: ATTEND Student in an Organized Health Care Education/Training Program
DX: Z51.81 Encounter for therapeutic drug level monitoring (principal); Z79.899 Other long term (current) drug therapy

== ENCOUNTER → 2021-10-27 | Outpatient (CLI) | payer MEDICARE ==
[2021-10-27 13:35] LABS: INR 3.56; PROTHROMBIN TIME 35.9 SECONDS (12.7-14.5)
== END ==
LOC: M PLALAB 10:48
PROVIDERS: ATTEND Student in an Organized Health Care Education/Training Program
DX: Z51.81 Encounter for therapeutic drug level monitoring (principal); Z79.01 Long term (current) use of anticoagulants

== ENCOUNTER → 2021-11-03 | Outpatient (CLI) | payer MEDICARE ==
[2021-11-03 13:27] LABS: INR 3.31; PROTHROMBIN TIME 33.9 SECONDS (12.7-14.5)
== END ==
LOC: M PLALAB 11:26
PROVIDERS: ATTEND Student in an Organized Health Care Education/Training Program
DX: Z51.81 Encounter for therapeutic drug level monitoring (principal)

== ENCOUNTER → 2021-11-17 | Outpatient (CLI) | payer MEDICARE ==
[2021-11-17 13:57] LABS: INR 3.14; PROTHROMBIN TIME 32.6 SECONDS (12.7-14.5)
== END ==
LOC: M PLALAB 10:37
PROVIDERS: ATTEND Student in an Organized Health Care Education/Training Program
DX: Z51.81 Encounter for therapeutic drug level monitoring (principal); Z79.899 Other long term (current) drug therapy

== ENCOUNTER → 2021-12-22 | Outpatient (CLI) | payer MEDICARE ==
[~2021-12-22] MED LIST changes: +LOSA50TA28 PO; -LOSA50TA88 PO
[2021-12-22 13:30] LABS: INR 3.22; PROTHROMBIN TIME 33.2 SECONDS (12.7-14.5)
== END ==
LOC: M PLALAB 11:55
PROVIDERS: ATTEND Student in an Organized Health Care Education/Training Program
DX: Z51.81 Encounter for therapeutic drug level monitoring (principal); Z79.01 Long term (current) use of anticoagulants

== ENCOUNTER → 2021-12-29 | Outpatient (CLI) | payer MEDICARE ==
[2021-12-29 13:49] LABS: INR 2.76; PROTHROMBIN TIME 29.5 SECONDS (12.7-14.5)
== END ==
LOC: M PLALAB 11:50
PROVIDERS: ATTEND Student in an Organized Health Care Education/Training Program
DX: Z51.81 Encounter for therapeutic drug level monitoring (principal); Z79.899 Other long term (current) drug therapy

== ENCOUNTER → 2022-01-20 | Outpatient (CLI) | payer MEDICARE ==
[2022-01-20 13:50] LABS: INR 2.62; PROTHROMBIN TIME 28.4 SECONDS (12.7-14.5)
== END ==
LOC: M PLALAB 10:44
PROVIDERS: ATTEND Student in an Organized Health Care Education/Training Program
DX: Z51.81 Encounter for therapeutic drug level monitoring (principal); Z79.899 Other long term (current) drug therapy

== ENCOUNTER 2022-01-31 12:01 | Emergency (ER) | payer MEDICARE ==
[~2022-01-31] VITALS: Ht 170.2 cm; Wt 75.5 kg
[2022-01-31 12:03] VITALS: BP 120/71
[2022-01-31] MEDS ORDERED: WARF-18 (12:12)
[2022-01-31] MEDS ORDERED: METO1TAB87 (12:12)
[2022-01-31] MEDS ORDERED: DOXA1TAB49 (12:12)
[2022-01-31] MEDS ORDERED: LIDO5OIN19 TOP (14:00)
[2022-01-31] MEDS ORDERED: VALA1TAB5 PO (14:00)
== END 2022-01-31 14:13 | disposition home or self-care (01) ==
LOC: M ED 12:01
DX: M71.21 Synovial cyst of popliteal space [Baker], right knee (principal); B02.9 Zoster without complications; I10 Essential (primary) hypertension; E03.9 Hypothyroidism, unspecified; K27.9 Peptic ulcer, site unspecified, unspecified as acute or chronic, without hemorrhage or perforation; Z86.711 Personal history of pulmonary embolism; Z86.718 Personal history of other venous thrombosis and embolism; Z86.73 Personal history of transient ischemic attack (TIA), and cerebral infarction without residual deficits; Z79.899 Other long term (current) drug therapy; Z79.890 Hormone replacement therapy; Z79.01 Long term (current) use of anticoagulants

== ENCOUNTER → 2022-02-02 | Outpatient (CLI) | payer MEDICARE ==
[~2022-02-02] MED LIST changes: +DOXA1TAB49; +LIDO5OIN19 TOP; +METO1TAB87; +VALA1TAB5 PO; +WARF-18
[2022-02-02 13:25] LABS: INR 2.75; PROTHROMBIN TIME 29.4 SECONDS (12.7-14.5)
== END ==
LOC: M PLALAB 12:01
PROVIDERS: ATTEND Student in an Organized Health Care Education/Training Program
DX: Z51.81 Encounter for therapeutic drug level monitoring (principal); Z79.899 Other long term (current) drug therapy

== ENCOUNTER → 2022-02-08 | Outpatient (CLI) | payer MEDICARE | LOC: M SOG 13:02 | PROVIDERS: ATTEND Orthopaedic Surgery | DX: M25.561 Pain in right knee (principal); M25.461 Effusion, right knee ==

== ENCOUNTER → 2022-02-23 | Outpatient (CLI) | payer MEDICARE ==
[2022-02-23 13:17] LABS: INR 2.55; PROTHROMBIN TIME 27.8 SECONDS (12.7-14.5)
== END ==
LOC: M PLALAB 10:59
PROVIDERS: ATTEND Student in an Organized Health Care Education/Training Program
DX: Z51.81 Encounter for therapeutic drug level monitoring (principal)

== ENCOUNTER → 2022-03-23 | Outpatient (CLI) | payer MEDICARE ==
[2022-03-23 10:59] LABS: INR 2.72; PROTHROMBIN TIME 29.2 SECONDS (12.7-14.5)
== END ==
LOC: M PLALAB 09:16
PROVIDERS: ATTEND Student in an Organized Health Care Education/Training Program
DX: Z51.81 Encounter for therapeutic drug level monitoring (principal)

== ENCOUNTER → 2022-04-21 | Outpatient (CLI) | payer MEDICARE ==
[2022-04-21 14:12] LABS: INR 2.87; PROTHROMBIN TIME 30.4 SECONDS (12.7-14.5)
== END ==
LOC: M PLALAB 09:58
PROVIDERS: ATTEND Student in an Organized Health Care Education/Training Program
DX: Z51.81 Encounter for therapeutic drug level monitoring (principal)

== ENCOUNTER → 2022-05-24 | Outpatient (CLI) | payer MEDICARE ==
[2022-05-24 13:47] LABS: INR 2.92; PROTHROMBIN TIME 30.8 SECONDS (12.7-14.5)
== END ==
LOC: M PLALAB 10:30
PROVIDERS: ATTEND Student in an Organized Health Care Education/Training Program
DX: Z51.81 Encounter for therapeutic drug level monitoring (principal)

== ENCOUNTER → 2022-06-27 | Outpatient (CLI) | payer MEDICARE ==
[2022-06-27 13:37] LABS: INR 2.46
== END ==
LOC: M PLALAB 10:13
PROVIDERS: ATTEND Student in an Organized Health Care Education/Training Program
DX: Z79.01 Long term (current) use of anticoagulants (principal)

== ENCOUNTER → 2022-07-05 | Outpatient (CLI) | payer MEDICARE ==
[2022-07-05 15:32] LABS: INR 2.6; PROTHROMBIN TIME 28.2 SECONDS (12.7-14.5)
== END ==
LOC: M PLALAB 10:50
PROVIDERS: ATTEND Student in an Organized Health Care Education/Training Program
DX: Z51.81 Encounter for therapeutic drug level monitoring (principal)

== ENCOUNTER → 2022-07-31 | Outpatient (CLI) | payer MEDICARE ==
[2022-07-31 13:43] LABS: INR 3.1; PROTHROMBIN TIME 32.3 SECONDS (12.7-14.5)
== END ==
LOC: M PLALAB 10:24
PROVIDERS: ATTEND Student in an Organized Health Care Education/Training Program
DX: Z79.01 Long term (current) use of anticoagulants (principal)

== ENCOUNTER → 2022-08-31 | Outpatient (CLI) | payer MEDICARE ==
[2022-08-31 13:36] LABS: INR 2.41; PROTHROMBIN TIME 26.6 SECONDS (12.5-14.5)
[2022-08-31 14:03] LABS: CHOLESTEROL RISK RATIO 2.867 (<5)
[2022-08-31 15:42] LABS: HEMOGLOBIN A1c 5.6 %
== END ==
LOC: M PLALAB 11:10
PROVIDERS: ATTEND Student in an Organized Health Care Education/Training Program
DX: E78.5 Hyperlipidemia, unspecified (principal); Z79.01 Long term (current) use of anticoagulants; Z13.1 Encounter for screening for diabetes mellitus; Z79.899 Other long term (current) drug therapy

== ENCOUNTER → 2022-09-25 | Outpatient (CLI) | payer MEDICARE ==
[2022-09-25 13:42] LABS: INR 2.16; PROTHROMBIN TIME 24.4 SECONDS (12.5-14.5)
== END ==
LOC: M PLALAB 11:42
PROVIDERS: ATTEND Student in an Organized Health Care Education/Training Program
DX: Z79.01 Long term (current) use of anticoagulants (principal)

== ENCOUNTER → 2022-10-10 | Outpatient (CLI) | payer MEDICARE ==
[2022-10-10 13:39] LABS: INR 2.83; PROTHROMBIN TIME 30.2 SECONDS (12.5-14.5)
== END ==
LOC: M PLALAB 11:02
PROVIDERS: ATTEND Student in an Organized Health Care Education/Training Program
DX: Z79.01 Long term (current) use of anticoagulants (principal)

== ENCOUNTER → 2022-11-07 | Outpatient (CLI) | payer MEDICARE ==
[2022-11-07 14:20] LABS: INR 2.24; PROTHROMBIN TIME 25.2 SECONDS (12.5-14.5)
== END ==
LOC: M PLALAB 11:37
PROVIDERS: ATTEND Student in an Organized Health Care Education/Training Program
DX: Z79.01 Long term (current) use of anticoagulants (principal)

== ENCOUNTER → 2022-12-08 | Outpatient (CLI) | payer MEDICARE ==
[2022-12-08 13:49] LABS: INR 2.19; PROTHROMBIN TIME 24.7 SECONDS (12.5-14.5)
== END ==
LOC: M PLALAB 11:59
PROVIDERS: ATTEND Student in an Organized Health Care Education/Training Program
DX: Z79.01 Long term (current) use of anticoagulants (principal)

== ENCOUNTER → 2023-01-05 | Outpatient (CLI) | payer MEDICARE ==
[2023-01-05 14:37] LABS: INR 2.1; PROTHROMBIN TIME 23.9 SECONDS (12.5-14.5)
== END ==
LOC: M PLALAB 12:14
PROVIDERS: ATTEND Student in an Organized Health Care Education/Training Program
DX: Z79.01 Long term (current) use of anticoagulants (principal)

== ENCOUNTER → 2023-02-05 | Outpatient (CLI) | payer MEDICARE ==
[2023-02-05 13:48] LABS: INR 2.43; PROTHROMBIN TIME 26.8 SECONDS (12.5-14.5)
== END ==
LOC: M PLALAB 11:24
PROVIDERS: ATTEND Student in an Organized Health Care Education/Training Program
DX: Z79.01 Long term (current) use of anticoagulants (principal)

== ENCOUNTER → 2023-03-05 | Outpatient (CLI) | payer MEDICARE ==
[2023-03-05 14:04] LABS: INR 2.45
== END ==
LOC: M PLALAB 11:47
PROVIDERS: ATTEND Student in an Organized Health Care Education/Training Program
DX: Z79.01 Long term (current) use of anticoagulants (principal)

== ENCOUNTER → 2023-04-02 | Outpatient (CLI) | payer MEDICARE ==
[2023-04-02 13:49] LABS: INR 2.41; PROTHROMBIN TIME 26.6 SECONDS (12.5-14.5)
== END ==
LOC: M PLALAB 10:51
PROVIDERS: ATTEND Student in an Organized Health Care Education/Training Program
DX: Z79.01 Long term (current) use of anticoagulants (principal)

== ENCOUNTER → 2023-05-01 | Outpatient (CLI) | payer MEDICARE ==
[2023-05-01 14:03] LABS: INR 2.37; PROTHROMBIN TIME 26.3 SECONDS (12.5-14.5)
== END ==
LOC: M PLALAB 11:45
PROVIDERS: ATTEND Student in an Organized Health Care Education/Training Program
DX: Z79.01 Long term (current) use of anticoagulants (principal)

== ENCOUNTER → 2023-05-29 | Outpatient (CLI) | payer MEDICARE ==
[2023-05-29 13:39] LABS: INR 2.26; PROTHROMBIN TIME 25.3 SECONDS (12.5-14.5)
== END ==
LOC: M PLALAB 09:28
PROVIDERS: ATTEND Student in an Organized Health Care Education/Training Program
DX: Z79.01 Long term (current) use of anticoagulants (principal)

== ENCOUNTER → 2023-06-28 | Outpatient (CLI) | payer MEDICARE ==
[2023-06-28 13:44] LABS: INR 2.57
== END ==
LOC: M PLALAB 11:43
PROVIDERS: ATTEND Student in an Organized Health Care Education/Training Program
DX: Z51.81 Encounter for therapeutic drug level monitoring (principal)

== ENCOUNTER → 2023-07-26 | Outpatient (CLI) | payer MEDICARE ==
[2023-07-26 14:24] LABS: INR 2.36; PROTHROMBIN TIME 25.2 SECONDS (12.5-14.5)
== END ==
LOC: M PLALAB 11:57
PROVIDERS: ATTEND Student in an Organized Health Care Education/Training Program
DX: Z51.81 Encounter for therapeutic drug level monitoring (principal)

== ENCOUNTER → 2023-08-27 | Outpatient (CLI) | payer MEDICARE ==
[2023-08-27 14:06] LABS: INR 3.06; PROTHROMBIN TIME 30.9 SECONDS (12.5-14.5)
== END ==
LOC: M PLALAB 11:04
PROVIDERS: ATTEND Student in an Organized Health Care Education/Training Program
DX: Z51.81 Encounter for therapeutic drug level monitoring (principal)

== ENCOUNTER → 2023-09-03 | Outpatient (CLI) | payer MEDICARE ==
[2023-09-03 14:40] LABS: INR 2.73; PROTHROMBIN TIME 28.3 SECONDS (12.5-14.5)
== END ==
LOC: M PLALAB 11:03
PROVIDERS: ATTEND Student in an Organized Health Care Education/Training Program
DX: Z51.81 Encounter for therapeutic drug level monitoring (principal)

== ENCOUNTER 2023-09-13 19:10 | Emergency (ER) | payer MEDICARE ==
[2023-09-13 19:13] VITALS: TEMP 98.6
[2023-09-13 19:50] LABS: INR 2.88; PROTHROMBIN TIME 29.5 SECONDS (12.5-14.5)
[2023-09-13 19:51] LABS: PARTIAL THROMBOPLASTIN TIME 39.1 SECONDS (24.8-34.2)
[2023-09-13 19:52] LABS: BASO % 0.4 % (0.0-1.0); EOS # 0.3 10^3/uL (0.0-0.5); EOS % 3.9 % (0.0-3.0); HEMATOCRIT 43.6 % (42.0-52.0); HEMOGLOBIN 14.6 g/dl (13.5-17.5); LYMPH # 2.6 10^3/uL (1.5-5.0); LYMPH % 29.8 % (24.0-44.0); MEAN CORPUSCULAR HEMOGLOBIN 28.1 pg (27.0-33.0); MEAN CORPUSCULAR HGB CONC 33.5 g/dl (32.0-36.5); MONO # 0.6 10^3/uL (0.0-0.8); MONO % 6.4 % (2.0-8.0); NEUTROPHILS # 5.1 10^3/uL (1.5-8.5); NEUTROPHILS % 59.1 % (36.0-66.0); PLATELET COUNT, AUTOMATED 196 10^3/uL (150-450); RED BLOOD COUNT 5.19 10^6/uL (4.30-6.10); WHITE BLOOD COUNT 8.6 10^3/uL (4.0-10.0)
[2023-09-13 19:56] LABS: CALCIUM LEVEL 8.9 MG/DL (8.3-10.6); CREATININE FOR GFR 1.83 MG/DL (0.70-1.30); GLOMERULAR FILTRATION RATE 38.4 (>42)
[2023-09-13 20:30] VITALS: BP 148/80; O2SAT 98
[2023-09-13] MEDS ORDERED: ACETAMINOPHEN 325 MG TAB PO ONE (21:20)
[2023-09-13] MEDS ORDERED: DERMABOND TOPICAL SKIN ADHESIVE TOP ONE (21:45)
[2023-09-13] MEDS ORDERED: BOOSTRIX VACCINE (TETANUS/DIPHTH/ACEL. PERTUSSIS) 0.5ML SYR IM ONE (21:55)
== END 2023-09-13 23:22 | disposition home or self-care (01) ==
LOC: M ED 19:10
DX: S61.411A Laceration without foreign body of right hand, initial encounter (principal); M25.511 Pain in right shoulder; W18.30XA Fall on same level, unspecified, initial encounter; Y92.410 Unspecified street and highway as the place of occurrence of the external cause; Y93.89 Activity, other specified; M50.30 Other cervical disc degeneration, unspecified cervical region; E03.9 Hypothyroidism, unspecified; I10 Essential (primary) hypertension; N18.9 Chronic kidney disease, unspecified; Z86.73 Personal history of transient ischemic attack (TIA), and cerebral infarction without residual deficits; Z87.891 Personal history of nicotine dependence; Z79.01 Long term (current) use of anticoagulants; Z79.899 Other long term (current) drug therapy

== ENCOUNTER → 2023-10-02 | Outpatient (CLI) | payer MEDICARE ==
[2023-10-02 13:29] LABS: INR 3.15; PROTHROMBIN TIME 31.2 SECONDS (12.5-14.5)
== END ==
LOC: M PLALAB 11:12
PROVIDERS: ATTEND Student in an Organized Health Care Education/Training Program
DX: Z51.81 Encounter for therapeutic drug level monitoring (principal)

== ENCOUNTER → 2023-10-09 | Outpatient (CLI) | payer MEDICARE ==
[2023-10-09 13:40] LABS: INR 2.94; PROTHROMBIN TIME 29.6 SECONDS (12.5-14.5)
== END ==
LOC: M PLALAB 10:34
PROVIDERS: ATTEND Student in an Organized Health Care Education/Training Program
DX: Z51.81 Encounter for therapeutic drug level monitoring (principal)

== ENCOUNTER → 2023-11-07 | Outpatient (CLI) | payer MEDICARE ==
[2023-11-07 13:18] LABS: INR 2.93; PROTHROMBIN TIME 29.5 SECONDS (12.5-14.5)
== END ==
LOC: M PLALAB 10:45
PROVIDERS: ATTEND Student in an Organized Health Care Education/Training Program
DX: Z51.81 Encounter for therapeutic drug level monitoring (principal)

== ENCOUNTER → 2023-12-11 | Outpatient (CLI) | payer MEDICARE ==
[2023-12-11 13:35] LABS: INR 2.82; PROTHROMBIN TIME 28.6 SECONDS (12.5-14.5)
== END ==
LOC: M PLALAB 10:18
PROVIDERS: ATTEND Student in an Organized Health Care Education/Training Program
DX: Z51.81 Encounter for therapeutic drug level monitoring (principal)

== ENCOUNTER → 2024-01-10 | Outpatient (CLI) | payer MEDICARE ==
[2024-01-10 13:55] LABS: INR 2.79; PROTHROMBIN TIME 28.4 SECONDS (12.5-14.5)
== END ==
LOC: M PLALAB 10:41
PROVIDERS: ATTEND Family Medicine
DX: I67.6 Nonpyogenic thrombosis of intracranial venous system (principal); Z79.01 Long term (current) use of anticoagulants

== ENCOUNTER → 2024-01-10 | Outpatient (REF) | payer MEDICARE | LOC: M SFHCPLAZ 10:44 | PROVIDERS: ATTEND Family Medicine | DX: Z53.9 Procedure and treatment not carried out, unspecified reason (principal) ==

== ENCOUNTER → 2024-02-12 | Outpatient (CLI) | payer MEDICARE ==
[2024-02-12 14:02] LABS: INR 3.21; PROTHROMBIN TIME 31.6 SECONDS (12.5-14.5)
== END ==
LOC: M PLALAB 10:30
PROVIDERS: ATTEND Student in an Organized Health Care Education/Training Program
DX: Z51.81 Encounter for therapeutic drug level monitoring (principal)

== ENCOUNTER → 2024-02-13 | Outpatient (REF) | payer MEDICARE | LOC: M SFHCPLAZ 13:30 | PROVIDERS: ATTEND Student in an Organized Health Care Education/Training Program | DX: Z53.9 Procedure and treatment not carried out, unspecified reason (principal) ==

== ENCOUNTER → 2024-02-20 | Outpatient (CLI) | payer MEDICARE ==
[2024-02-20 13:07] LABS: INR 2.46; PROTHROMBIN TIME 25.8 SECONDS (12.5-14.5)
== END ==
LOC: M PLALAB 11:07
PROVIDERS: ATTEND Student in an Organized Health Care Education/Training Program
DX: I67.6 Nonpyogenic thrombosis of intracranial venous system (principal)

== ENCOUNTER → 2024-03-13 | Outpatient (REF) | payer MEDICARE | LOC: M SFHCPLAZ 23:35 | PROVIDERS: ATTEND Student in an Organized Health Care Education/Training Program | DX: Z79.01 Long term (current) use of anticoagulants (principal) ==

== ENCOUNTER → 2024-03-21 | Outpatient (CLI) | payer MEDICARE ==
[2024-03-21 13:03] LABS: INR 2.53; PROTHROMBIN TIME 26.3 SECONDS (12.5-14.5)
== END ==
LOC: M PLALAB 10:06
PROVIDERS: ATTEND Student in an Organized Health Care Education/Training Program
DX: Z79.01 Long term (current) use of anticoagulants (principal)

== ENCOUNTER → 2024-04-18 | Outpatient (CLI) | payer MEDICARE ==
[2024-04-18 12:28] LABS: INR 2.8; PROTHROMBIN TIME 28.5 SECONDS (12.5-14.5)
== END ==
LOC: M PLALAB 09:55
PROVIDERS: ATTEND Student in an Organized Health Care Education/Training Program
DX: Z79.01 Long term (current) use of anticoagulants (principal)

== ENCOUNTER → 2024-05-20 | Outpatient (CLI) | payer MEDICARE ==
[2024-05-20 13:46] LABS: INR 2.89; PROTHROMBIN TIME 29.2 SECONDS (12.5-14.5)
== END ==
LOC: M PLALAB 10:08
PROVIDERS: ATTEND Student in an Organized Health Care Education/Training Program
DX: Z79.01 Long term (current) use of anticoagulants (principal)

== ENCOUNTER → 2024-06-17 | Outpatient (CLI) | payer MEDICARE ==
[2024-06-17 12:59] LABS: INR 2.9; PROTHROMBIN TIME 29.3 SECONDS (12.5-14.5)
== END ==
LOC: M PLALAB 09:55
PROVIDERS: ATTEND Student in an Organized Health Care Education/Training Program
DX: Z79.01 Long term (current) use of anticoagulants (principal)

== ENCOUNTER → 2024-07-15 | Outpatient (CLI) | payer MEDICARE ==
[2024-07-15 12:36] LABS: INR 2.84; PROTHROMBIN TIME 28.8 SECONDS (12.5-14.5)
== END ==
LOC: M PLALAB 10:38
PROVIDERS: ATTEND Student in an Organized Health Care Education/Training Program
DX: Z79.01 Long term (current) use of anticoagulants (principal)

== ENCOUNTER → 2024-08-12 | Outpatient (CLI) | payer MEDICARE ==
[2024-08-12 14:15] LABS: INR 2.82; PROTHROMBIN TIME 28.6 SECONDS (12.5-14.5)
== END ==
LOC: M PLALAB 11:52
PROVIDERS: ATTEND Student in an Organized Health Care Education/Training Program
DX: Z79.01 Long term (current) use of anticoagulants (principal)

== ENCOUNTER → 2024-09-11 | Outpatient (CLI) | payer MEDICARE ==
[2024-09-11 12:52] LABS: INR 2.58; PROTHROMBIN TIME 26.8 SECONDS (12.5-14.5)
== END ==
LOC: M PLALAB 10:08
PROVIDERS: ATTEND Student in an Organized Health Care Education/Training Program
DX: Z79.01 Long term (current) use of anticoagulants (principal)

== ENCOUNTER → 2024-10-09 | Outpatient (CLI) | payer MEDICARE ==
[2024-10-09 15:11] LABS: INR 2.65; PROTHROMBIN TIME 28.3 SECONDS (12.5-14.5)
== END ==
LOC: M PLALAB 12:11
PROVIDERS: ATTEND Student in an Organized Health Care Education/Training Program
DX: Z79.01 Long term (current) use of anticoagulants (principal)

== ENCOUNTER → 2024-10-23 | Outpatient (CLI) | payer MEDICARE | LOC: M RAD 15:18 | PROVIDERS: ATTEND Internal Medicine Nephrology | DX: R33.9 Retention of urine, unspecified (principal) ==

== ENCOUNTER → 2024-11-06 | Outpatient (CLI) | payer MEDICARE ==
[2024-11-06 15:07] LABS: INR 2.8; PROTHROMBIN TIME 29.4 SECONDS (12.5-14.5)
== END ==
LOC: M PLALAB 13:04
PROVIDERS: ATTEND Student in an Organized Health Care Education/Training Program
DX: Z79.01 Long term (current) use of anticoagulants (principal)

== ENCOUNTER → 2024-12-05 | Outpatient (CLI) | payer MEDICARE ==
[2024-12-05 15:03] LABS: INR 2.78; PROTHROMBIN TIME 29.3 SECONDS (12.5-14.5)
== END ==
LOC: M PLALAB 12:41
PROVIDERS: ATTEND Student in an Organized Health Care Education/Training Program
DX: Z79.01 Long term (current) use of anticoagulants (principal)

== ENCOUNTER → 2025-01-02 | Outpatient (CLI) | payer MEDICARE ==
[2025-01-02 14:50] LABS: BASO % 0.5 % (0.0-1.0); EOS # 0.4 10^3/uL (0.0-0.5); EOS % 4.2 % (0.0-3.0); HEMATOCRIT 46.5 % (42.0-52.0); HEMOGLOBIN 14.9 g/dl (13.5-17.5); LYMPH # 2.1 10^3/uL (1.5-5.0); LYMPH % 24.2 % (24.0-44.0); MEAN CORPUSCULAR HEMOGLOBIN 27.7 pg (27.0-33.0); MEAN CORPUSCULAR VOLUME 86.4 fl (80.0-96.0); MONO # 0.6 10^3/uL (0.0-0.8); MONO % 7.4 % (2.0-8.0); NEUTROPHILS # 5.4 10^3/uL (1.5-8.5); NEUTROPHILS % 63.5 % (36.0-66.0); PLATELET COUNT, AUTOMATED 198 10^3/uL (150-450); RED BLOOD COUNT 5.38 10^6/uL (4.30-6.10); WHITE BLOOD COUNT 8.5 10^3/uL (4.0-10.0)
[2025-01-02 15:13] LABS: INR 2.48; PROTHROMBIN TIME 26.9 SECONDS (12.5-14.5)
[2025-01-02 15:15] LABS: HEMOGLOBIN A1c 5.8 % (4.0-6.0)
[2025-01-02 15:36] LABS: ALBUMIN 3.7 G/DL (3.2-5.2); BILIRUBIN,TOTAL 0.5 MG/DL (0.3-1.2); CALCIUM LEVEL 9.3 MG/DL (8.3-10.6); CHOLESTEROL RISK RATIO 2.84 (<5); CREATININE FOR GFR 1.6 MG/DL (0.70-1.30); GLOMERULAR FILTRATION RATE 44.7 (>42); HDL CHOLESTEROL 49.5 MG/DL (>40); LDL CHOLESTEROL 58.1 MG/DL (<100); NON-HDL-C 91.5 MG/DL; POTASSIUM SERUM 4.4 MMOL/L (3.5-5.1); THYROID STIMULATING HORMONE 2.753 uIU/ML (0.55-4.78); TOTAL PROTEIN 6.7 G/DL (5.7-8.2)
[2025-01-02 15:38] LABS: TOTAL 25(OH) VITAMIN D 35.6 NG/ML (20.0-100.0)
== END ==
LOC: M PLALAB 12:09
PROVIDERS: ATTEND Student in an Organized Health Care Education/Training Program
DX: Z00.00 Encounter for general adult medical examination without abnormal findings (principal); E78.5 Hyperlipidemia, unspecified; Z13.1 Encounter for screening for diabetes mellitus; E03.9 Hypothyroidism, unspecified; Z79.01 Long term (current) use of anticoagulants; Z79.899 Other long term (current) drug therapy

== ENCOUNTER → 2025-01-30 | Outpatient (CLI) | payer MEDICARE ==
[2025-01-30 13:14] LABS: INR 2.6; PROTHROMBIN TIME 27.8 SECONDS (12.5-14.5)
== END ==
LOC: M PLALAB 12:01
PROVIDERS: ATTEND Student in an Organized Health Care Education/Training Program
DX: Z79.01 Long term (current) use of anticoagulants (principal)

== ENCOUNTER → 2025-02-27 | Outpatient (CLI) | payer MEDICARE ==
[2025-02-27 13:16] LABS: INR 2.66; PROTHROMBIN TIME 28.3 SECONDS (12.5-14.5)
== END ==
LOC: M PLALAB 11:54
PROVIDERS: ATTEND Student in an Organized Health Care Education/Training Program
DX: Z79.01 Long term (current) use of anticoagulants (principal)

== ENCOUNTER → 2025-03-27 | Outpatient (CLI) | payer MEDICARE ==
[2025-03-27 13:10] LABS: INR 2.7; PROTHROMBIN TIME 28.7 SECONDS (12.5-14.5)
== END ==
LOC: M PLALAB 12:12
PROVIDERS: ATTEND Student in an Organized Health Care Education/Training Program
DX: I67.6 Nonpyogenic thrombosis of intracranial venous system (principal)

== ENCOUNTER → 2025-05-21 | Outpatient (CLI) | payer MEDICARE ==
[2025-05-21 12:53] LABS: INR 2.96
== END ==
LOC: M PLALAB 10:59
PROVIDERS: ATTEND Student in an Organized Health Care Education/Training Program
DX: I67.6 Nonpyogenic thrombosis of intracranial venous system (principal)

== ENCOUNTER → 2025-06-19 | Outpatient (CLI) | payer MEDICARE ==
[2025-06-19 12:49] LABS: INR 2.98
== END ==
LOC: M PLALAB 11:01
PROVIDERS: ATTEND Student in an Organized Health Care Education/Training Program
DX: I67.6 Nonpyogenic thrombosis of intracranial venous system (principal)

== ENCOUNTER → 2025-07-17 | Outpatient (CLI) | payer MEDICARE ==
[2025-07-17 12:48] LABS: INR 3.11
== END ==
LOC: M PLALAB 11:16
PROVIDERS: ATTEND Student in an Organized Health Care Education/Training Program
DX: I67.6 Nonpyogenic thrombosis of intracranial venous system (principal)

== ENCOUNTER → 2025-08-18 | Outpatient (CLI) | payer MEDICARE ==
[2025-08-18 13:08] LABS: INR 2.77
== END ==
LOC: M PLALAB 10:44
PROVIDERS: ATTEND Family Medicine
DX: I67.6 Nonpyogenic thrombosis of intracranial venous system (principal)

== ENCOUNTER → 2025-09-15 | Outpatient (CLI) | payer MEDICARE ==
[2025-09-15 13:33] LABS: INR 3.37
== END ==
LOC: M PLALAB 11:34
PROVIDERS: ATTEND Student in an Organized Health Care Education/Training Program
DX: I67.6 Nonpyogenic thrombosis of intracranial venous system (principal)

== ENCOUNTER 2025-09-20 11:23 | Emergency (ER) | payer MEDICARE ==
[~2025-09-20] VITALS: Ht 170.2 cm; Wt 80.1 kg
[2025-09-20 11:25] VITALS: TEMP 96.8
[2025-09-20] MEDS ORDERED: FINA5TAB2 (11:34)
[2025-09-20] MEDS ORDERED: ATOR40TA75 (11:34)
[2025-09-20 12:33] LABS: BASO # 0.0 10^3/uL (0.0-0.2); BASO % 0.3 % (0.0-1.0); EOS # 0.2 10^3/uL (0.0-0.5); EOS % 1.7 % (0.0-3.0); LYMPH # 1.5 10^3/uL (1.5-5.0); LYMPH % 14.8 % (24.0-44.0); MONO # 0.7 10^3/uL (0.0-0.8); MONO % 6.9 % (2.0-8.0); NEUTROPHILS # 7.8 10^3/uL (1.5-8.5); NEUTROPHILS % 75.8 % (36.0-66.0); PLATELET COUNT, AUTOMATED 196 10^3/uL (150-450)
[2025-09-20 13:06] LABS: CALCIUM LEVEL 9.1 MG/DL (8.3-10.6); CARBON DIOXIDE LEVEL 25.0 MMOL/L (20-31); CHLORIDE LEVEL 109.0 MMOL/L (98-107); CREATININE FOR GFR 1.92 MG/DL (0.70-1.30); GLOMERULAR FILTRATION RATE 35.0 (>42); POTASSIUM SERUM 4.1 MMOL/L (3.5-5.1); SODIUM LEVEL 145.0 MMOL/L (136-145)
[2025-09-20 13:07] LABS: INR 3.46
[2025-09-20 13:42] LABS: C REACTIVE PROTEIN QUANTITATIV 1.54 MG/DL (<1.0)
[2025-09-20 16:00] VITALS: BP 157/79; O2SAT 97
== END 2025-09-20 16:33 | disposition home or self-care (01) ==
LOC: M ED 11:23
DX: M71.21 Synovial cyst of popliteal space [Baker], right knee (principal); Z86.711 Personal history of pulmonary embolism; Z86.718 Personal history of other venous thrombosis and embolism; Z86.73 Personal history of transient ischemic attack (TIA), and cerebral infarction without residual deficits; Z79.01 Long term (current) use of anticoagulants; Z79.899 Other long term (current) drug therapy

== ENCOUNTER 2025-09-27 20:13 | Emergency (ER) | payer MEDICARE ==
[~2025-09-27] VITALS: Ht 170.2 cm; Wt 80.1 kg
[~2025-09-27 20:13] MED LIST changes: +ATOR40TA75; +FINA5TAB2
[2025-09-27 21:44] LABS: BASO # 0.0 10^3/uL (0.0-0.2); BASO % 0.2 % (0.0-1.0); EOS # 0.1 10^3/uL (0.0-0.5); EOS % 0.7 % (0.0-3.0); LYMPH # 1.2 10^3/uL (1.5-5.0); LYMPH % 9.7 % (24.0-44.0); MONO # 1.0 10^3/uL (0.0-0.8); MONO % 8.2 % (2.0-8.0); NEUTROPHILS # 9.9 10^3/uL (1.5-8.5); NEUTROPHILS % 80.6 % (36.0-66.0); PLATELET COUNT, AUTOMATED 279 10^3/uL (150-450)
[2025-09-27 22:11] LABS: INR 3.7
[2025-09-27] MEDS ORDERED: OXYC-517 PO (22:29)
[2025-09-27] MEDS: OXYCODONE/APAP 5MG/325MG(HOME DOSE PACK) PO ONE (22:51)
[2025-09-27 23:12] VITALS: BP 162/73; TEMP 99.5; O2SAT 97
== END 2025-09-27 23:14 | disposition home or self-care (01) ==
LOC: M ED 20:13
DX: M66.0 Rupture of popliteal cyst (principal); R22.41 Localized swelling, mass and lump, right lower limb; I10 Essential (primary) hypertension; E78.5 Hyperlipidemia, unspecified; Z86.711 Personal history of pulmonary embolism; Z86.718 Personal history of other venous thrombosis and embolism; Z79.01 Long term (current) use of anticoagulants; Z79.899 Other long term (current) drug therapy

== ENCOUNTER → 2025-10-01 | Outpatient (CLI) | payer MEDICARE ==
[~2025-10-01] MED LIST changes: +OXYC-517 PO
[2025-10-01 13:20] LABS: INR 2.32
== END ==
LOC: M PLALAB 10:12
PROVIDERS: ATTEND Emergency Medicine
DX: R79.1 Abnormal coagulation profile (principal)

== ENCOUNTER → 2025-10-13 | Outpatient (REF) | payer MEDICARE ==
[2025-10-13 13:17] LABS: INR 3.3
== END ==
LOC: M SFHCPLAZ 12:38
PROVIDERS: ATTEND Student in an Organized Health Care Education/Training Program
DX: I67.6 Nonpyogenic thrombosis of intracranial venous system (principal)

== ENCOUNTER → 2025-10-21 | Outpatient (CLI) | payer MEDICARE ==
[2025-10-21 13:33] LABS: INR 2.98
== END ==
LOC: M PLALAB 11:34
PROVIDERS: ATTEND Student in an Organized Health Care Education/Training Program
DX: I67.6 Nonpyogenic thrombosis of intracranial venous system (principal)

== ENCOUNTER → 2025-10-29 | Outpatient (CLI) | payer MEDICARE ==
[2025-10-29 13:16] LABS: INR 2.92
== END ==
LOC: M PLALAB 11:49
PROVIDERS: ATTEND Family Medicine
DX: I67.6 Nonpyogenic thrombosis of intracranial venous system (principal)

== ENCOUNTER → 2025-11-10 | Outpatient (CLI) | payer MEDICARE ==
[2025-11-10 14:02] LABS: INR 2.8
== END ==
LOC: M PLALAB 11:44
PROVIDERS: ATTEND Student in an Organized Health Care Education/Training Program
DX: I67.6 Nonpyogenic thrombosis of intracranial venous system (principal)